=== PATIENT | male | born 1995 | race Caucasian/White ===

== ENCOUNTER 2022-08-13 22:28 | Emergency (ER) | payer SELFPAY ==
[~2022-08-13] VITALS: Ht 180.3 cm; Wt 90.9 kg
[2022-08-13 22:38] VITALS: BP 153/95
[2022-08-13] MEDS ORDERED: LIDOCAINE 2%/EPI 1:100,000 inj. Multi-dose 20 ML VIAL SQ ONE (23:05)
== END 2022-08-13 23:45 ==
LOC: ER 22:28
DX: S01.511A Laceration without foreign body of lip, initial encounter (principal); V87.7XXA Person injured in collision between other specified motor vehicles (traffic), initial encounter; Y93.89 Activity, other specified; Y92.488 Other paved roadways as the place of occurrence of the external cause; Y99.8 Other external cause status
CPT/HCPCS: 12011; 99283